=== PATIENT | female | born 1995 | race Caucasian/White ===

== ENCOUNTER 2017-01-09 19:21 | Inpatient (IN) | payer MEDICAID ==
[~2017-01-09] VITALS: Ht 160 cm; Wt 72.1 kg
[~2017-01-09 19:21] MED LIST: ACET500C5 PO; ONDA4TAB8 PO
[2017-01-09 19:37] VITALS: BP 133/74; PULSE 77; RESP 18; Ht 160 cm; Wt 72.1 kg
[2017-01-09] MEDS ORDERED: PREN-93 PO (19:42)
--- NOTE | 2017-01-09 21:32 | PN ---
Date/Time of Note Date/Time of Note DATE: 01/09/17 TIME: 21:30 OB Subjective Subjective Subjective patient came w/ c/o ctx, no VB, good FM, no LOF OB Objective Objective Objective Nml VS Abdomen- gravid, n/t SVE- 3/100/-2 FHT- Cat I [place]- ctx q 3-4 miin Abdomen: WNL Cervical Dilatation: 3cm Effacement: 100% Station: -3 Accelerations: Accelerations Present Decelerations: No Decelerations Contractions on Admission: 6-10 Minutes Apart Intensity: Moderate OB Assessment/Plan Other Assessment: 21 yo P0 @ term, r/o labor - reassuring status Other plan: patient to ambulate and return for re-examination CUCO MEDEROS MD Jan 09, 2017 21:32
[2017-01-09] MEDS ORDERED: LACTATED RINGER'S 1,000 ML IV PRN (23:28)
[2017-01-09] MEDS ORDERED: LIDOCAINE 1% (MPF) 30 ML INJ INJ PRN (23:30)
[2017-01-09] MEDS ORDERED: IBUPROFEN 600 MG TAB PO PRN (23:30)
[2017-01-09] MEDS ORDERED: BUTORPHANOL 2 MG INJ IV PRN ×2 (23:30)
[2017-01-09] MEDS ORDERED: CARBOPROST 250 MCG INJ IM PRN (23:30)
[2017-01-09] MEDS ORDERED: ACETAMINOPHEN/CODEINE #3 TAB PO PRN (23:30)
[2017-01-09] MEDS ORDERED: MISOPROSTOL 200 MCG TAB PR PRN (23:30)
[2017-01-09] MEDS ORDERED: METHYLERGONOVINE 0.2 MG INJ IM PRN (23:30)
[2017-01-09] MEDS ORDERED: OXYTOCIN 30 UNITS/LR 500 ML IV PRN (23:30)
[2017-01-09] MEDS ORDERED: OXYTOCIN 30 UNITS/LR 500 ML IV SCH (23:30)
[2017-01-09 23:38] LABS: ADD SCAN DIFF NO
[2017-01-09 23:46] LABS: BASOPHILS % 0.2 % (0.0-2.0); EOSINOPHILS # 0.1 10^3/ul (0.0-0.5); EOSINOPHILS % 0.5 % (0.0-7.0); HEMOGLOBIN 9.5 g/dl (12.0-16.0); LYMPHOCYTES # 1.4 10^3/ul (0.8-2.9); LYMPHOCYTES % 11.8 % (18.0-55.0); MEAN CORPUSCULAR HEMOGLOBIN 25.3 pg (29.0-33.0); MEAN CORPUSCULAR HGB CONC 31.7 g/dl (32.0-37.0); MEAN PLATELET VOLUME 9.5 fl (7.4-10.4); MONOCYTE # 0.7 10^3/ul (0.3-0.9); NEUTROPHIL # 9.9 10^3/ul (1.6-7.5); NEUTROPHILS % 81.1 % (30.0-74.0); PLATELET COUNT 223 10^3/UL (140-415); RED BLOOD COUNT 3.75 10^6/ul (4.20-5.40); RED CELL DISTRIBUTION WIDTH 13.9 % (11.5-14.5); WHITE BLOOD COUNT 12.2 10^3/ul (4.8-10.8)
[2017-01-09 23:47] LABS: INR 0.84; PROTIME 11.5 Sec (12.2-14.2); PT RATIO 0.9
[2017-01-09 23:48] LABS: PARTIAL THROMBOPLASTIN TIME 25.3 Sec (25.0-35.0)
[2017-01-10] LABS: ALANINE AMINOTRANSFERASE 25 IU/L (13-69); ALBUMIN 3.6 g/dl (3.3-4.9); ALBUMIN/GLOBULIN RATIO 1.12; ALKALINE PHOSPHATASE 261 IU/L (42-121); ANION GAP 9 (8-16); ASPARTATE AMINO TRANSFERASE 24 IU/L (15-46); BILIRUBIN,INDIRECT 0.2 mg/dl (0-1.1); BILIRUBIN,TOTAL 0.2 mg/dl (0.2-1.3); BLOOD UREA NITROGEN 7 mg/dl (7-20); CALCIUM 9.1 mg/dl (8.4-10.2); CARBON DIOXIDE 24 mmol/L (21-31); CHLORIDE 106 mmol/L (97-110); CREATININE 0.66 mg/dl (0.44-1.00); GLUCOSE 98 mg/dl (70-220); SODIUM 135 mmol/L (135-144); TOTAL PROTEIN 6.8 g/dl (6.1-8.1)
[2017-01-10] MEDS: LACTATED RINGER'S 1,000 ML IV SCH ×2 (00:02→06:08)
[2017-01-10 00:04] LABS: ADD UMIC YES; URINE BILIRUBIN (Dip) NEGATIVE (NEGATIVE); URINE BLOOD (Dip) TRACE (NEGATIVE); URINE COLOR LT. YELLOW (YELLOW); URINE GLUCOSE (Dip) NEGATIVE (NEGATIVE); URINE KETONES (Dip) NEGATIVE (NEGATIVE); URINE LEUKOCYTE ESTERASE (Dip) 2+ (NEGATIVE); URINE NITRITE (Dip) NEGATIVE (NEGATIVE); URINE TOTAL PROTEIN (Dip) NEGATIVE (NEGATIVE); URINE UROBILINOGEN (Dip) 0.2 E.U./dL (0.1-1.0)
[2017-01-10 00:18] LABS: BACTERIA,URINE OCCASIONAL; SQUAMOUS EPITHELIAL CELL,UR FEW; URINE RBCS 0-2 /HPF (0)
[2017-01-10 00:31] LABS: BARBITURATES Negative (NEGATIVE)
[2017-01-10 00:32] LABS: BENZODIAZEPINES Negative (NEGATIVE); CANNABINOIDS Negative (NEGATIVE); COCAINE Negative (NEGATIVE); OPIATES Negative (NEGATIVE)
[2017-01-10] MEDS ORDERED: FENTAnyl 2MCG/ML-ROPIV 0.2% 100 ML ONE (00:32)
[2017-01-10] MEDS ORDERED: FENTAnyl 2MCG/ML-ROPIV 0.2% 100 ML BAG EPI SCH (01:00)
[2017-01-10] MEDS ORDERED: NALOXONE (0.4 MG/ML) INJ IV PRN (01:00)
[2017-01-10 02:06] VITALS: BP 108/55
[2017-01-10] MEDS: OXYTOCIN 30 UNITS/LR 500 ML IV SCH ×4 (10:47→17:00)
[2017-01-10 11:30] VITALS: BP 113/75; PULSE 84; RESP 18
[2017-01-10] MEDS ORDERED: DIBUCAINE 1% 30 GM OINT PR PRN (12:30)
[2017-01-10] MEDS ORDERED: ACETAMINOPHEN/CODEINE #3 TAB PO PRN ×2 (12:30)
[2017-01-10] MEDS ORDERED: ACETAMINOPHEN 325 MG TAB PO PRN (12:30)
[2017-01-10] MEDS ORDERED: OXYCODONE/ASPIRIN (4.88/325) TAB PO PRN ×2 (12:30)
[2017-01-10] MEDS ORDERED: WITCH HAZEL/GLYCERIN PAD PR PRN (12:30)
[2017-01-10] MEDS ORDERED: ONDANSETRON 4 MG INJ IV PRN (12:30)
[2017-01-10] MEDS ORDERED: BENZOCAINE 20% 56 ML SPRAY TOP PRN (12:30)
[2017-01-10] MEDS ORDERED: LANOLIN 7 GM TUBE TOP PRN (12:30)
[2017-01-10] MEDS: IBUPROFEN 600 MG TAB PO SCH ×2 (12:41→17:38)
[2017-01-10 19:35] VITALS: BP 113/66; PULSE 77; RESP 19
[2017-01-10] MEDS: SENNA/DOCUSATE NA (8.6MG/50MG) TAB PO SCH (21:29)
[2017-01-11] MEDS: IBUPROFEN 600 MG TAB PO SCH ×5 (00:02→23:41)
[2017-01-11 00:05] VITALS: BP 118/69; PULSE 81; RESP 19
[2017-01-11 04:05] VITALS: BP 102/69; PULSE 75; RESP 18
[2017-01-11 07:36] LABS: ADD SCAN DIFF NO
[2017-01-11 07:38] LABS: BASOPHILS % 0.3 % (0.0-2.0); EOSINOPHILS # 0.1 10^3/ul (0.0-0.5); EOSINOPHILS % 0.7 % (0.0-7.0); HEMATOCRIT 26.2 % (37.0-47.0); HEMOGLOBIN 8.6 g/dl (12.0-16.0); LYMPHOCYTES # 1.8 10^3/ul (0.8-2.9); LYMPHOCYTES % 13.2 % (18.0-55.0); MEAN CORPUSCULAR HEMOGLOBIN 26.3 pg (29.0-33.0); MEAN CORPUSCULAR HGB CONC 32.8 g/dl (32.0-37.0); MEAN CORPUSCULAR VOLUME 80.1 fl (72.0-104.0); MEAN PLATELET VOLUME 9.5 fl (7.4-10.4); MONOCYTE # 0.7 10^3/ul (0.3-0.9); MONOCYTES % 5.1 % (0.0-13.0); NEUTROPHIL # 10.9 10^3/ul (1.6-7.5); NEUTROPHILS % 80.3 % (30.0-74.0); PLATELET COUNT 184 10^3/UL (140-415); RED BLOOD COUNT 3.27 10^6/ul (4.20-5.40); RED CELL DISTRIBUTION WIDTH 14.2 % (11.5-14.5); WHITE BLOOD COUNT 13.5 10^3/ul (4.8-10.8)
[2017-01-11 08:00] VITALS: BP 99/62; PULSE 78; RESP 18
[2017-01-11] MEDS: SENNA/DOCUSATE NA (8.6MG/50MG) TAB PO SCH ×2 (09:20→21:20)
--- NOTE | 2017-01-11 09:38 | LDN ---
Date/Time of Note Date/Time of Note DATE: 01/11/17 TIME: 09:34 Delivery Summary Normal spontaneous vaginal delivery of a baby boy from OA position shoulders delivered without any difficulties rest of the baby's body followed cord clamped after stopped pulsation placenta spontaneous expulsion inspected complete estimated blood loss 200 mL baby's 8 and 9 baby weighted 3640 g Weeks of Gestation 39 weeks and 6 days Placenta Delivered: Spontaneously Meconium: none Episiotomy: No Anesthesia type: Epidural Estimated blood loss: 200 Sponge & Needle done & correct: Yes All needle counts correct: Yes Any foreign bodies felt in the: No Problems: DEBORA OLSON MD Jan 11, 2017 09:38
--- NOTE | 2017-01-11 09:41 | PN ---
Date/Time of Note Date/Time of Note DATE: 01/11/17 TIME: 09:40 OB Subjective Subjective Subjective day 1 Afebrile vital signs stable abdomen soft uterus firm lochia normal extremity normal ambulation recommended Laboratory Tests Test 01/11/17 06:52 White Blood Count 13.510^3/ul Red Blood Count 3.2710^6/ul Hemoglobin 8.6g/dl Hematocrit 26.2% Mean Corpuscular Volume 80.1fl Mean Corpuscular Hemoglobin 26.3pg Mean Corpuscular Hemoglobin Concent 32.8g/dl Red Cell Distribution Width 14.2% Platelet Count 29794^3/UL Mean Platelet Volume 9.5fl Neutrophils % 80.3% Lymphocytes % 13.2% Monocytes % 5.1% Eosinophils % 0.7% Basophils % 0.3% Nucleated Red Blood Cells % 0.0/100WBC Neutrophils # 10.910^3/ul Lymphocytes # 1.810^3/ul Monocytes # 0.710^3/ul Eosinophils # 0.110^3/ul Basophils # 0.010^3/ul Nucleated Red Blood Cells # 0.010^3/ul Current Medications Medications (Trade) Dose Ordered Sig/Rhianna Route PRN Reason Start Time Stop Time Status Last Admin Dose Admin Lactated Ringer's (Lr) 1,000 ml @ 125 mls/hr Q8H IV 01/09/17 23:24 01/10/17 12:19 DC 01/10/17 06:08 Butorphanol Tartrate (Stadol) 1 mg Q2H PRN IV PAIN 01/09/17 23:30 01/10/17 12:19 DC Butorphanol Tartrate (Stadol) 2 mg Q2H PRN IV PAIN 01/09/17 23:30 01/10/17 12:19 DC Lidocaine 30 ml 30 ml ONCE PRN INJ EPISIOTOMY/TEARING 01/09/17 23:30 01/10/17 12:19 DC 01/10/17 10:48 Oxytocin/Lactated Ringer's 500 ml @ 125 mls/hr ONCE -MAY REPEAT X1 IV 01/09/17 23:30 01/10/17 12:19 DC 01/10/17 11:41 Oxytocin/Lactated Ringer's 500 ml @ 125 mls/hr ONCE IV 01/09/17 23:30 01/10/17 12:20 DC Ibuprofen (Motrin) 600 mg ONCE PRN PO Mild Pain (Pain Score 1-3) 01/09/17 23:30 01/10/17 12:20 DC Acetaminophen/ Codeine Phosphate 2 tab 2 tab ONCE PRN PO Moderate to Severe Pain (4-10) 01/09/17 23:30 01/10/17 12:20 DC Lactated Ringer's 1,000 ml @ 2,000 mls/hr Q30M PRN IV PRE-EPIDURAL BOLUS 01/09/17 23:28 01/10/17 12:20 DC 01/10/17 00:02 Oxytocin/Lactated Ringer's 500 ml @ 0 mls/hr ONCE PRN IV For Hemorrhage Management 01/09/17 23:30 01/10/17 12:20 DC Methylergonovine Maleate (Methergine) 0.2 mg ONCE PRN IM VAGINAL BLEEDING 01/09/17 23:30 01/10/17 12:20 DC Carboprost Tromethamine (Hemabate) 250 mcg ONCE PRN IM VAGINAL BLEEDING 01/09/17 23:30 01/10/17 12:20 DC Misoprostol 1000 mcg 1,000 mcg ONCE PRN [place] VAGINAL BLEEDING 01/09/17 23:30 01/10/17 12:21 DC Fentanyl/ Ropivacaine 100 ml @ ud STK-MED ONCE .ROUTE 01/10/17 00:32 01/10/17 00:33 DC Naloxone HCl (Narcan) 0.2 mg Q2M PRN IV FOR RESP RATE 8 OR LESS 01/10/17 01:00 01/10/17 12:20 DC Fentanyl/ Ropivacaine 100 ml 100 ml EPIDURAL (PCEA) EPI 01/10/17 01:00 01/10/17 12:20 DC Oxytocin/Lactated Ringer's 500 ml @ 125 mls/hr Q4H IV 01/10/17 12:18 01/10/17 20:17 DC Ibuprofen (Motrin) 600 mg Q6 PO 01/10/17 12:30 01/11/17 05:40 Acetaminophen (Tylenol Tab) 650 mg Q4H PRN PO PAIN LEVEL 1-5 01/10/17 12:30 Acetaminophen/ Codeine Phosphate (Tylenol No.3) 1 tab Q4H PRN PO PAIN LEVEL 1-5 01/10/17 12:30 Acetaminophen/ Codeine Phosphate (Tylenol No.3) 2 tab Q4H PRN PO PAIN LEVEL 6-10 01/10/17 12:30 Oxycodone/Aspirin (Percodan) 1 tab Q3H PRN PO PAIN LEVEL 1-5 01/10/17 12:30 Oxycodone/Aspirin (Percodan) 2 tab Q3H PRN PO PAIN LEVEL 6-10 01/10/17 12:30 Ondansetron HCl (Zofran Inj) 4 mg Q6H PRN IV NAUSEA AND/OR VOMITING 01/10/17 12:30 Senna/Docusate Sodium (Senokot-S) 1 tab BID PO 01/10/17 21:00 01/11/17 09:20 Witch Divine/ Glycerin (Tucks Pads) 1 pad BEDSIDE MEDICATION PRN [place] HEMORRHOID/EPISIOTMY PAIN 01/10/17 12:30 01/10/17 12:41 Benzocaine (Dermoplast [place]) 1 spray BEDSIDE MEDICATION PRN TOP HEMORRHOID/EPISIOTMY PAIN 01/10/17 12:30 01/10/17 12:41 Dibucaine (Nupercainal) 1 applic BEDSIDE MEDICATION PRN [place] HEMORRHOID/EPISIOTMY PAIN 01/10/17 12:30 Lanolin ([id number]) 1 applic BEDSIDE MEDICATION PRN TOP BEDSIDE FOR JEFERSON TO NIPPLES 01/10/17 12:30 01/10/17 12:42 Measles/Mumps/ Rubella Vaccine Live (Mmr Ii Vaccine) 0.5 ml ONCE ONCE SC* 01/12/17 09:00 01/12/17 09:01 DEBORA OLSON MD Jan 11, 2017 09:41
[2017-01-11 11:39] VITALS: BP 114/74; PULSE 76; RESP 20
[2017-01-11 12:57] LABS: RUBELLA ANTIBODY - IGG 2.68 index
[2017-01-11 20:00] VITALS: BP 126/76; PULSE 84; RESP 16
[2017-01-12 03:30] VITALS: BP 107/67; PULSE 71; RESP 18
[2017-01-12] MEDS: IBUPROFEN 600 MG TAB PO SCH (05:44)
[2017-01-12 08:00] VITALS: BP 101/66; PULSE 63; RESP 16
[2017-01-12] MEDS ORDERED: MEASLES,MUMPS,RUBELLA VACCINE INJ SC* ONE (09:00)
[2017-01-12] MEDS: SENNA/DOCUSATE NA (8.6MG/50MG) TAB PO SCH (09:09)
--- NOTE | 2017-01-12 09:50 | PD.PPDC ---
REST RO[facility] Discharge Instruction Condition Patient Condition: Good Diet Diet: Resume Regular Diet Activity/Restrictions Activity: Normal Activity May Shower Restrictions: No Sexual Activity Nothing in the Vagina No [place] No Tampons, douche Follow-up Follow-up with Physician: 6, Week/Weeks Return to clinic for [facility] Instructions: Fever greater than 101 Chills Worsening abdominal pain Excessive Vaginal Bleeding OB Instructions: Breast Tenderness Depression ALFONZO SEBASTIAN MD Jan 12, 2017 09:50
--- NOTE | 2017-01-12 09:53 | DS ---
Date/Time of Note Date/Time of Note DATE: 01/12/17 TIME: 09:51 Obstetrical Discharge Record Final Diagnosis Final Diagnosis: Term delivered Vaginal Delivery Obstetrical Delivery: Spontaneous, Laceration, Repaired Complications Augmentation: No Induction: No Condition on Discharge Physical Assessment Last Vitals: T=97.9 BP 107/67 Voiding: Yes Bowel Movement: Yes Breast: Filling Fundus: Firm Calf Tenderness: No Patient Condition: Good ALFONZO SEBASTIAN MD Jan 12, 2017 09:53
== END 2017-01-12 15:45 | disposition home or self-care (01) | DRG 775 ==
LOC: OBT 19:21 → L-D 19:21 → OBT 22:55 → L-D 22:55 → PP1 01-10 12:31
PROVIDERS: ADMIT Obstetrics & Gynecology; ATTEND Obstetrics & Gynecology
PROC: 4A1HXCZ Monitoring of Products of Conception, Cardiac Rate, External Approach (ICD-10-PCS; 2017-01-09)
PROC: 10E0XZZ Delivery of Products of Conception, External Approach (ICD-10-PCS; principal; 2017-01-10)
DX: O80 Encounter for full-term uncomplicated delivery (principal); Z37.0 Single live birth; Z3A.39 39 weeks gestation of pregnancy
CPT/HCPCS: 36415; 62319; 80053; 80307; 81001; 81003; 85025; 85610; 85730; 86592; 86703; 86762; 86850; 86885; 86900; 86901; 87086; 87340; 96360; 99464; G0463; J2590; J2790; J3010; J7120